=== PATIENT | female | born 1945 | race Caucasian/White ===

== ENCOUNTER 2019-03-10 15:33 | Emergency (ER) | payer OTHER ==
[~2019-03-10] VITALS: Ht 157.5 cm; Wt 76.2 kg
[2019-03-10] MEDS ORDERED: LEVO-T25 MCG (15:50)
[2019-03-10] MEDS ORDERED: ACEBUTOLOL HCL200 MG (15:50)
[2019-03-10] MEDS ORDERED: SIMVASTATIN40 MG (15:50)
== END 2019-03-10 17:46 | disposition home or self-care (01) ==
LOC: ER 15:33
DX: L23.5 Allergic contact dermatitis due to other chemical products (principal); T59.894A Toxic effect of other specified gases, fumes and vapors, undetermined, initial encounter; Y92.89 Other specified places as the place of occurrence of the external cause